=== PATIENT | male | born 1990 | race Caucasian/White ===

== ENCOUNTER 2020-11-10 22:18 | Emergency (ER) | payer OTHER ==
[~2020-11-10] VITALS: Ht 177.8 cm; Wt 90.7 kg
[2020-11-10] MEDS ORDERED: SUBOXONE 8 MG-1 EAC1 (22:37)
[2020-11-10] MEDS ORDERED: NARCAN4 MG (22:37)
[2020-11-11] MEDS ORDERED: ULTRAM50 MG PO (00:02)
== END 2020-11-11 00:26 | disposition home or self-care (01) ==
LOC: ED 22:18
DX: S60.212A Contusion of left wrist, initial encounter (principal); W01.198A Fall on same level from slipping, tripping and stumbling with subsequent striking against other object, initial encounter; F17.200 Nicotine dependence, unspecified, uncomplicated; Z88.5 Allergy status to narcotic agent
CPT/HCPCS: 73110; 73130; 99283-25